=== PATIENT | male | born 1955 | race Caucasian/White ===

== ENCOUNTER 2022-02-11 13:33 | Outpatient (CLI) | payer MEDICARE, SELFPAY ==
[2022-02-11 15:24] LABS: Chloride* 105 mmol/L (96-114); Sodium* 139 mmol/L (135-149)
[2022-02-11 15:26] LABS: Cholesterol* 129 mg/dL (90-199)
[2022-02-11 15:27] LABS: Alanine Aminotransferase* 67 U/L (4-50); Alkaline Phosphatase* 101 U/L (40-150); Aspartate Amino Transferase* 58 U/L (12-35); Bilirubin Total* 1.5 mg/dL (0.1-1.5); Blood Urea Nitrogen* 22 mg/dL (7-30); Calcium* 8.8 mg/dL (8.4-10.6); Carbon Dioxide* 29 mmol/L (20-32); Estimated Glomerular Filt Rate 82 ml/min; Glucose* 94 mg/dL (60-115); Total Protein* 6.5 g/dL (6.0-8.3); Triglycerides* 83 mg/dL (40-149)
[2022-02-11 15:28] LABS: HDL Cholesterol* 71 mg/dL (>=40); LDL Cholesterol Calculated 41 mg/dL (<100)
== END 2022-02-11 13:34 | disposition home or self-care (01) ==
PROVIDERS: PCP Family Medicine; Visit Provider Family Medicine
DX: Z00.00 Encounter for general adult medical examination without abnormal findings (principal); I10 Essential (primary) hypertension; E78.00 Pure hypercholesterolemia, unspecified; Z12.5 Encounter for screening for malignant neoplasm of prostate
CPT/HCPCS: 80053; 80061; 84153

== ENCOUNTER 2023-01-31 08:20 | Outpatient (CLI) | payer MEDICARE, SELFPAY | END 2023-01-31 08:21 | disposition home or self-care (01) | LOC: NFLDREF 02-02 03:34 | PROVIDERS: PCP Family Medicine; Referring Provider Family Medicine; Visit Provider Family Medicine | DX: Z00.00 Encounter for general adult medical examination without abnormal findings (principal); D64.9 Anemia, unspecified; R79.89 Other specified abnormal findings of blood chemistry; I10 Essential (primary) hypertension; M06.9 Rheumatoid arthritis, unspecified; Z12.5 Encounter for screening for malignant neoplasm of prostate; Z13.6 Encounter for screening for cardiovascular disorders; Z79.899 Other long term (current) drug therapy | CPT/HCPCS: 80048; 80061; 80076; 82728; 84153 ==

== ENCOUNTER 2023-03-27 12:27 | Outpatient (CLI) | payer MEDICARE, SELFPAY ==
--- NOTE | 2023-03-27 13:30 | CRLHL7_ITS ---
For Patients: As a result of the Century Cures Act, medical imaging exams and procedure reports are released immediately into your electronic medical record. You may view this report before your referring provider. If you have questions, please contact your health care provider. DXA BONE MINERAL DENSITY STUDY Reason for exam: On prednisone. Current height (in): 66.0. Weight (lb): 158.0. Ethnicity: White. 1. Have you had a previous hip or vertebral fracture? No. 2. Have you had any fractures during your adult life which did not result from significant trauma (e.g., auto accident)? Yes. 3. Did either of your parents have a hip fracture? No. 4. Do you smoke? No. 5. Have you ever taken Glucocorticoids? No. 6. Do you have rheumatoid arthritis? Yes. 7. Do you have secondary osteoporosis? No. 8. Do you drink 3 or more alcoholic drinks per day? No. 9. Are you being treated for osteoporosis? No. 10. Have you ever taken any of the following medications: Actonel, Evista, Fosamax, Miacalcin, Reclast, Boniva, Forteo, HRT (i.e. estrogen/hormone therapy), Protelos, Prolia, Vitamin D, Calcium, other ??? please specify. ANSWER: Yes, vitamin D. 11. Do you have any of the following medical conditions: Anorexia or bulimia, asthma or emphysema, end stage renal disease, hyperparathyroidism, any seizure disorders, cancer, inflammatory bowel diseases, hysterectomy, other ??? please specify. ANSWER: No. 12. What was your maximum height (inches)? 67. 13. Do you perform weight bearing exercise regularly? Yes. 14. Do you regularly consume dairy products? Yes. 15. Do you drink caffeinated beverages? Yes. TECHNIQUE: Bone mineral density study was performed using the [employer]. FINDINGS: The results of the study expressed as bone mineral density (BMD) are as follows: Lumbar spine L1 to L4: BMD: 1.043 g/cm2. T-score: -0.4. Z-score: 0.5. Neck Right: BMD: 0.864 g/cm2. T-score: -0.5. Z-score: 0.7. Total Right: BMD: 1.011 g/cm2. T-score: -0.1. Z-score: 0.5. Radius Right 33%: BMD: 0.576 g/cm2. T-score: -4.6. Z-score: -3.2. IMPRESSION: Osteoporosis. Smooth Hanson M.D. Diagnostic Radiologist [email or web address] / be/Dictated by: Smooth Hanson MD @ 03/27/2023 2:55:00 PM (Electronically Signed)
== END 2023-03-27 12:28 | disposition home or self-care (01) ==
PROVIDERS: PCP Family Medicine; Visit Provider Family Medicine
DX: G35 Multiple sclerosis (principal); M81.0 Age-related osteoporosis without current pathological fracture; M06.9 Rheumatoid arthritis, unspecified; Z79.899 Other long term (current) drug therapy
CPT/HCPCS: 77080

== ENCOUNTER 2023-08-22 16:20 | Outpatient (CLI) | payer MEDICARE, SELFPAY ==
--- NOTE | 2023-08-22 16:45 | CT_ITS ---
Patient: GELY MENESES Facility:?[facility] Patient ID:?[id number] Site Patient ID:?[id number]. Site :?[id number] Study:?CT-Sinus WITHOUT-08/22/2023 4:42:11 PM Ordering Physician:RADHA Final Report: INDICATION: Chronic sinusitis. TECHNIQUE: Noncontrast CT images of the paranasal sinuses. COMPARISON: CT sinus 10/13/2015. FINDINGS: No air-fluid levels to suggest acute sinusitis. Minimal mucosal thickening in the maxillary sinuses. The ethmoid infundibula are widely patent. Minimal mucosal thickening in the frontal recesses. The frontal sinuses are otherwise clear. Mild mucosal thickening in the ethmoid air cells. Mild left and minimal right sphenoid sinus mucosal thickening. The right sphenoethmoidal recess is opacified. The left sphenoethmoidal recess is clear. There is 4 mm leftward nasal septal deviation and 4 mm leftward directed septal spur contacting the left middle and inferior nasal turbinates. No nasal cavity masses. Maira bullosa of the middle turbinates. The mastoid air cells are clear. IMPRESSION: 1. Mild paranasal sinus mucosal disease, similar compared to the prior CT. No air-fluid levels to suggest acute sinusitis. 2. Leftward nasal septal deviation with leftward directed septal spur contacting the left inferior and middle nasal turbinates. Please note that all CT scans at this facility use dose modulation, iterative reconstruction, and/or weight-based dosing when appropriate to reduce radiation dose to as low as reasonably achievable. Dictated by Hernandez Liriano MD @ 08/23/2023 8:16:49 PM Signed by:?Hernandez Liriano MD @08/23/2023 8:16:49 PM (Electronic Signature)
== END 2023-08-22 16:21 | disposition home or self-care (01) ==
LOC: CT 16:21
PROVIDERS: PCP Family Medicine; Visit Provider Family Medicine
DX: J32.9 Chronic sinusitis, unspecified (principal); J34.2 Deviated nasal septum
CPT/HCPCS: 70486

== ENCOUNTER 2023-10-13 09:57 | Outpatient (CLI) | payer MEDICARE, SELFPAY ==
--- NOTE | 2023-10-22 09:18 | W.PM.SLEEP ---
Sleep Study Details Details Interpreting Provider: Coleen Date of Sleep Study: 10/13/23 Sleep Study Details: STUDY TYPE:? Home unattended ? BMI:? Not recorded ORDERING PROVIDER:Winter Horne INDICATION:? Concern about sleep apnea ? SLEEP SUMMARY:? 479 minutes monitored RESPIRATORY SUMMARY:? AHI per CMS guidelines 2.9, per rule 1A/3% guidelines 7.6 Low oxygen 86 0.2% of study oxygen less than 90% Snoring 99.1% PERIODIC LIMB MOVEMENTS OF SLEEP:? Not recorded CARDIAC:? 44-88, mean 52.6 IMPRESSION:? Per CMS guidelines study is not demonstrate clinically significant obstructive sleep apnea. If rule 1A guidelines are use the patient has mild obstructive sleep apnea. RECOMMENDATION: If patient is symptomatic treatment possibilities would include CPAP, dental appliance and/or airway expansion surgery.
== END 2023-10-13 09:58 | disposition home or self-care (01) ==
LOC: SLEEP 09:58
PROVIDERS: PCP Family Medicine; Visit Provider Otolaryngology
DX: G47.33 Obstructive sleep apnea (adult) (pediatric) (principal); G47.30 Sleep apnea, unspecified; G47.10 Hypersomnia, unspecified; R06.83 Snoring
CPT/HCPCS: 95806

== ENCOUNTER 2024-04-14 08:24 | Outpatient (CLI) | payer MEDICARE, SELFPAY | END 2024-04-14 08:25 | disposition home or self-care (01) | LOC: NFLDREF 04-15 14:51 | PROVIDERS: PCP Family Medicine; Referring Provider Family Medicine; Visit Provider Family Medicine | DX: I10 Essential (primary) hypertension (principal); Z13.1 Encounter for screening for diabetes mellitus; Z12.5 Encounter for screening for malignant neoplasm of prostate; Z13.6 Encounter for screening for cardiovascular disorders | CPT/HCPCS: 80053; 80061; G0103 ==

== ENCOUNTER 2025-04-15 08:02 | Outpatient (CLI) | payer MEDICARE, SELFPAY | END 2025-04-15 08:03 | disposition home or self-care (01) | LOC: NFLDREF 04-20 17:53 | PROVIDERS: PCP Family Medicine; Referring Provider Family Medicine; Visit Provider Family Medicine | DX: Z12.5 Encounter for screening for malignant neoplasm of prostate (principal); Z13.1 Encounter for screening for diabetes mellitus; Z13.6 Encounter for screening for cardiovascular disorders | CPT/HCPCS: 80053; 80061; G0103 ==